=== PATIENT | male | born 1965 | race Caucasian/White ===

== ENCOUNTER 2017-05-23 21:30 | Inpatient (IN) ==
[2017-05-23] MEDS ORDERED: Naloxone 0.4 MG/ML INJ IVP PRN (23:42)
[2017-05-23] MEDS ORDERED: Ketorolac 30 MG/ML VIAL IVP PRN (23:42)
[2017-05-23] MEDS ORDERED: *HR* LORazepam 2 MG/ML VIAL IVP PRN ×3 (23:48)
--- NOTE | 2017-05-23 23:53 | Internal Med History&Physical ---
Date of Encounter: 05/23/17 Time of Encounter: 23:00 Assessment and Plan (1) Alcoholism Current visit: Yes Status: Acute Patient denies heavy alcohol use. Obviously he drink today. Will place patient on CIWA protocol. Follow-up alcohol level in AM (2) DVT prophylaxis Current visit: Yes Status: Acute EPCD on the left leg now. Hold anticoagulation for possible surgery tomorrow. May start anticoagulation after surgery (3) Fracture of distal end of tibia with fibula Current visit: No Status: Acute Patient has mechanical fall with right tibia and fibula fracture. - Continue pain control - Nothing by mouth from midnight. IV fluid - Orthopedic consult for surgery Qualifiers: Encounter type: initial encounter Fracture type: closed Laterality: right Qualified Code(s): S82.831A - Other fracture of upper and lower end of right fibula, initial encounter for closed fracture; S82.301A - Unspecified fracture of lower end of right tibia, initial encounter for closed fracture; S82.301A - Unspecified fracture of lower end of right tibia, initial encounter for closed fracture Internal Medicine - H&P: HPI Chief complaint: Right leg pain Admitted From: Home Plans for Post Hospital Care: Transfer In Rehab Fac History of present illness: Mr. Manzano is a 51 year old male with history of hypertension on no medication now, depression, presented to [place] emergency room for fall and left leg pain. Patient said he fell in kitchen when he was preparing food for family. Patient denies loss of consciousness. Patient denies head or neck injury. Patient denies and other parts of pain except right lower leg. In [place] emergency room, he was found alcohol level high to 300s. X-ray shows right tibia fibula fracture. Patient was transferred to our hospital for further management. Past Med Surg Social Fam HX - Past Medical History Medical history: arthritis, hypertension Psychiatric history: anxiety, depression - Social History Smoking Status: Never smoker Smokeless Tobacco Status: No Alcohol use: heavy Drug use: marijuana - Family History Mother History Unknown: Yes Internal Medicine - H&P: Meds No Known Home Drugs 05/23/17 [History] 3 Allergy/AdvReac Type Severity Reaction Status Date / Time Penicillins Allergy unknown Verified 05/23/17 20:45 All Systems PM: A 10-system review of systems was performed and is negative for pertinent findings except as documented above in the HPI. - Constitutional Vitals: Temp Pulse Resp BP Pulse Ox 97.7 F 91 16 130/84 93 05/23/17 23:01 05/23/17 23:01 05/23/17 23:01 05/23/17 23:01 05/23/17 23:01 General appearance: Present: mild distress, A&O X 3, answers questions appropriately - Head Head exam: Present: atraumatic, normocephalic - Eye Eye exam: Present: PERRL, conjuntiva pink, sclera anicteric Pupils: Present: PERRL - Neck Neck exam general surgery: Present: supple, trachea midline. Absent: lymphadenopathy - Respiratory Respiratory exam: Present: CTAB. Absent: accessory muscle use, rales, rhonchi, wheezes - Cardiovascular Cardiovascular exam: Present: RRR, +S1, +S2. Absent: diastolic murmur, gallop, rubs, systolic murmur - GI/Abdominal GI/Abdominal exam: Present: normal bowel sounds, soft, no peritoneal signs. Absent: distended, tenderness - Extremities Exam Extremities exam: Present: warm, radial pulses palpable and symmetrical. Absent : calf tenderness, cyanotic, pedal edema Additional comments: Left leg movement is limited due to pain - Neurological Exam Neurological exam: Present: CN II-XII intact, oriented X3, no focal deficits. Absent: pronater drift, facial droop, speech deficit - Skin Skin exam: Present: dry, intact
[2017-05-24 06:05] LABS: Basophils # 0.1 K/mcL (0.0-0.2); Basophils % 0.5 %; Eosinophils # 0.1 K/mcL (0.0-0.6); Eosinophils % 0.5 %; Hematocrit 44.2 % (37.5-50.1); Hemoglobin 15.1 g/dL (12.9-16.9); Immature Granulocytes % 0.3 % (0-4); Lymphocytes # 2.4 K/mcL (0.6-4.6); Lymphocytes % 23.5 %; Mean Corpuscular HGB Conc 34.2 g/dL (31.6-35.5); Mean Corpuscular Hemoglobin 29.1 pg (28.0-33.3); Mean Corpuscular Volume 85.2 fL (83.0-100.0); Mean Platelet Volume 9.8 fL (9.4-12.4); Monocytes # 0.7 K/mcL (0.0-1.3); Monocytes % 6.5 %; Neutrophils # 7.2 K/mcL (1.6-8.9); Platelet Count 206 K/mcL (140-400); Red Blood Count 5.19 M/mcL (4.19-5.50); Red Cell Distribution Width 12.8 % (11.5-14.5); Segmented Neutrophils % 68.7 %
[2017-05-24 06:09] LABS: Ethanol 184 mg/dL (0-10)
[2017-05-24 06:10] LABS: INR 1.1; Prothrombin Time 11.5 Seconds (9.4-12.1)
[2017-05-24 06:30] LABS: BUN/Creatinine Ratio 16 (6-26); Blood Urea Nitrogen 10 mg/dL (6-20); Calcium 8.4 mg/dL (8.6-10.3); Carbon Dioxide 23 mEq/L (23-29); Chloride 109 mEq/L (98-107); Glucose 109 mg/dL (70-105); Osmolality,Calculated 294 (280-300); Potassium 3.8 mEq/L (3.5-5.1); Sodium 142 mEq/L (136-145); eGFR For African Americans > 60 (> 60); eGFR For Non-African Americans > 60 (> 60)
--- NOTE | 2017-05-24 07:18 | Anesthesia Evaluation PreOp ---
Date of Encounter: 05/24/17 Time of Encounter: 08:00 - Past History Planned Operation: Rt Tib Fib ORIF, IM Nailing Cardiac History: Hyperlipidemia (no meds) Pulmonary History: Denies Any Significant HX CHAIR History: Denies Any Significant HX Other Medical History: Other (Depression) Anesthesia History: No Prior Anesthetic Complications Alcohol Use: heavy Drug use: marijuana Medications and Allergies No Known Home Drugs 05/23/17 [History] 3 Allergy/AdvReac Type Severity Reaction Status Date / Time Penicillins Allergy unknown Verified 05/23/17 20:45 - Meds/Allergy Pre-op Review Medications Reviewed: Yes Allergies Reviewed: Yes Beta Blockers on Current Med List: No Anesthesia Results - Labs 05/24/17 05:16 05/24/17 05:16 Anesthesia Exam Vital Signs/O2 Sat/Glucose, Most Current Temp Pulse Resp BP Pulse Ox 05/24/17 03:50 98.4 F 86 16 119/73 92 Height: 5'6 Weight: 214 lbs NPO (# of Hours): MN Pain Scale: 0 - HEENT Pupil (Motor): Pupils equal, EOMI Mallampati: III Teeth: Normal Oral Opening: Less than or equal to 3 - CHAIR LOC: Oriented CHAIR Motor: Normal RUE, Normal LUE, Normal RLE, Normal LLE, Normal Face CHAIR Sensory: Normal: RUE, LUE, RLE, LLE, Face - Cardiac Rhythm: Regular Murmur: None JVD: No Carotid Bruit: No - Pulmonary Breath Sounds: bilateral Clear Respiratory Effort: Symmetrical Anesthesia Assess/Plan ASA Score: 2 Modified [place] Scale for Level of Consciousness: Cooperative, oriented, and tranquil Anesthetic Plan: General, Regional Monitoring Plan: Standard Monitors Recovery Plan: PACU (Discussed GA, RA, possible MAC, risks and benefits, agrees to proceed)
--- NOTE | 2017-05-24 08:11 | Orthopedic Consult Note ---
Date of Encounter: 05/24/17 Time of Encounter: 08:09 Assessment and Plan (1) Fracture of tibial shaft, right, closed Current Visit: Yes Status: Acute Discussed with the patient was requested and stabilization. Patient given the option of doing surgery herer at [place] or transfer to [place]. Patient would like to have the surgery done today. He is scheduled for a right leg intramedullary nailing of the tibia. The risks, benefits alternatives discussed. Informed consent was obtained. Qualifiers: Encounter type: initial encounter Fracture morphology: spiral Fracture alignment: displaced Qualified Code(s): S82.241A - Displaced spiral fracture of shaft of right tibia, initial encounter for closed fracture (2) Closed fracture of right distal fibula Current Visit: Yes Status: Acute We discussed that since this is further down in the ankle, most likely require an open reduction internal fixation. The additional risks, benefits alternatives were discussed the patient. Qualifiers: Encounter type: initial encounter Fracture morphology: unspecified fracture morphology Qualified Code(s): S82.831A - Other fracture of upper and lower end of right fibula, initial encounter for closed fracture (3) Alcoholism Current Visit: Yes Status: Acute Will have to monitor him for signs of withdrawal and use DT prophylaxis History of Present Illness Chief complaint: Right leg pain HPI: Mr. Manzano is a 51 year old male who is visiting his mom in [place]. The patient was inebriated, celebrating [employer]. He was indicated to cooking meal when he fell over sustaining a right leg tibia and fibula fractures. Patient denies loss of consciousness prior to the fall and did not black out after the injury. The patient lives in [place]. 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 The patient admits to history of alcohol abuse. 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 Past Med Surg Social Fam HX - Past Medical History Medical history: arthritis, hypertension Psychiatric history: anxiety, depression - Social History Smoking Status: Never smoker Smokeless Tobacco Status: No Alcohol use: heavy Drug use: marijuana - Family History Mother History Unknown: Yes Medications and Allergies No Known Home Drugs 05/23/17 [History] 3 Allergy/AdvReac Type Severity Reaction Status Date / Time Penicillins Allergy unknown Verified 05/23/17 20:45 All Systems Reviewed: The remainder of the systems were reviewed and are negative Physical Exam - Constitutional Vitals: Temp Pulse Resp BP Pulse Ox 98.4 F 91 12 135/84 95 05/24/17 07:38 05/24/17 07:38 05/24/17 07:38 05/24/17 07:38 05/24/17 07:38 General appearance IM: mild distress, A&O X 3, pleasant, answers questions appropriately Exam: Head: Normocephalic atraumatic Right lower extremity: Patient has on a splint to the right leg. He is able to bend his knee and hip. He is able to move his toes without pain. Sensation intact. Normal capillary refill. Left lower extremity: No bruising, deformity, normal range of motion of joints , no tenderness along bones Results - Labs Result Diagrams: 05/24/17 05:16 05/24/17 05:16 Labs: Abnormal lab results Chloride 109 mEq/L (98-107) H 05/24/17 05:16 Creatinine 0.64 mg/dL (0.70-1.30) L 05/24/17 05:16 Glucose 109 mg/dL (70-105) H 05/24/17 05:16 POC Glucose 97 (58-89) H 05/24/17 05:20 Calcium 8.4 mg/dL (8.6-10.3) L 05/24/17 05:16 Ethyl Alcohol 184 mg/dL (0-10) H 05/24/17 05:16 H & H 05/24/17 Range/Units 05:16 Hgb 15.1 (12.9-16.9) g/dL Hct 44.2 (37.5-50.1) % All other labs normal. - Diagnostic results Ankle/Foot x-ray: image reviewed (Right leg x-ray showing a nondisplaced tibial shaft fracture, also a distal fibular fracture) Consult Discharge Plan - Plan Referrals: NONE,PCP [Primary Care Provider] -
[2017-05-24] MEDS: 0.9 % Sodium Chloride 1,000 ML IVC SCH ×3 (08:21→13:01)
[2017-05-24] MEDS ORDERED: Acetaminophen IV 1,000 MG/100 ML INFUS..BTL IVPB ONE ×2 (08:32→09:40)
[2017-05-24] MEDS ORDERED: Famotidine 20 MG/2 ML VIAL IVP ONE ×2 (08:32→09:40)
[2017-05-24] MEDS ORDERED: *HR* Midazolam HCl 5 MG/5 ML VIAL IVP ONE (08:36)
[2017-05-24] MEDS ORDERED: *HR* Propofol 200 MG/20 ML VIAL IVP ONE (08:36)
[2017-05-24] MEDS ORDERED: *HR* FentaNYL (PF) 100 MCG/2 ML VIAL ONE ×2 (08:36→09:14)
[2017-05-24] MEDS ORDERED: Ondansetron 4 MG/2 ML VIAL ONE (08:37)
[2017-05-24] MEDS ORDERED: Dexamethasone 4 MG/ML VIAL ONE (08:37)
[2017-05-24] MEDS ORDERED: Lidocaine -MPF 2% 2 ML VIAL ONE (08:37)
[2017-05-24] MEDS ORDERED: *HR* Morphine Sulfate/PF 10 MG/10 ML AMPUL ONE (08:47)
[2017-05-24] MEDS ORDERED: Acetaminophen IV 1,000 MG/100 ML INFUS..BTL ONE (08:47)
[2017-05-24] MEDS ORDERED: Clindamycin 900 MG/50 ML 900 MG/50 ML IV.SOLN IVPB ONE (08:50)
[2017-05-24] MEDS ORDERED: *HR* PHENYLEPHRINE 1,000 MCG/10 ML SYRINGE IVP ONE ×2 (08:57→09:22)
[2017-05-24] MEDS: Clindamycin 900 MG/50 ML 900 MG/50 ML IV.SOLN IVPB SCH ×3 (09:00→17:40)
[2017-05-24] MEDS ORDERED: *HR* OxyCODONE/APAP 5/325 TABLET PO PRN (09:40)
[2017-05-24] MEDS ORDERED: Ketorolac 30 MG/ML VIAL IVP PRN (09:40)
[2017-05-24] MEDS ORDERED: Naloxone 0.4 MG/ML INJ IVP PRN ×2 (09:40)
[2017-05-24] MEDS ORDERED: *HR* LORazepam 2 MG/ML VIAL IVP PRN ×3 (09:40)
[2017-05-24] MEDS ORDERED: Ibuprofen 400 MG TABLET PO PRN (09:40)
[2017-05-24] MEDS ORDERED: Ondansetron 4 MG/2 ML VIAL IVP PRN (09:40)
[2017-05-24] MEDS ORDERED: traMADol 50 MG TABLET PO PRN (09:40)
[2017-05-24] MEDS ORDERED: *HR* Phenylephrine 10 MG/ML VIAL ONE (09:45)
--- NOTE | 2017-05-24 10:41 | Internal Med Progress Note ---
Addendum entered and electronically signed by Adrian Vasques DO 05/24/17 16: 03: Addendum to A/P Alcohol withdrawal symptoms The patient is becoming more tachycardic and hypertensive This is likely related to alcohol withdrawal We will prophylactically start Librium, initiate a taper Original Note: <Adrian Vasques - Last Filed: 05/24/17 14:35> Date of Encounter: 05/24/17 Time of Encounter: 14:35 - Assessment and plan (1) Fracture of distal end of tibia with fibula Current Visit: Yes Status: Acute Assessment and plan: Fracture of the Right Tibia/fibula, s/p surgical correction The patient suffered mechanical fall while intoxicated We will continue pain medication PT/OT Consult in the morning Ortho recommendations appreciated Qualifiers: Encounter type: initial encounter Fracture type: closed Laterality: right Qualified Code(s): S82.831A - Other fracture of upper and lower end of right fibula, initial encounter for closed fracture; S82.301A - Unspecified fracture of lower end of right tibia, initial encounter for closed fracture; S82.301A - Unspecified fracture of lower end of right tibia, initial encounter for closed fracture (2) Alcoholism Current Visit: Yes Status: Acute Assessment and plan: Alcohol abuse/dependence, EtOH on arrival 184 The patient is on CIWA protocol, recent score 1 Unlikely to need benzodiazepines for this hospitalization We will replace vitamins, rehabilitation services counselor on alcohol cessation (3) Manic depression Current Visit: Yes Status: Acute Assessment and plan: Self-described Manic Depression, 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 The patient has been dealing with significant depression lately He does admit to some impulsivity He has apparently been prescribed lamotrigine as a mood stabilizer in the past, but his new insurance won't cover it He does feel that the medication was not very helpful Would like to discuss options for management of depression and alcoholism, which he feels are related Will consult social work Qualifiers: Active/Remission status: in partial remission Most recent bipolar episode type: depressed Qualified Code(s): F31.75 - Bipolar disorder, in partial remission, most recent episode depressed (4) DVT prophylaxis Current Visit: Yes Status: Acute Assessment and plan: SQ lovenox (5) Hypertension Current Visit: Yes Status: Acute Assessment and plan: Hypertension, poorly controlled The patient says he's been treated with Lisinopril previously He stopped taking his medication when insurance was changed He has been hypertensive over his stay here Pain and alcohol withdrawal may play a role in this, however it's unclear I will start him on 10mg Lisinopril and monitor Qualifiers: Hypertension type: essential hypertension Qualified Code(s): I10 - Essential (primary) hypertension - Subjective Interval history: The patient is resting comfortably in bed status post surgical correction of tibia fibula fracture. He says that this occurred due to a fall. He lost his balance while drinking [employer]old[employer], and he fell he broke his leg. He says that he has had an issue with drinking in the past, and has made multiple efforts to stop. He is apparently tried to take naltrexone at the prescription of his primary care, and he says that it is effective in stopping while he takes it, however he finds that he often ends up stopping that. He also says that he has been feeling extremely depressed. He describes as "manic depression ", but hints that he may have been diagnosed with bipolar disorder at some time. He believes that his alcohol use is in part method of self-medication. When asked, he said he does have a good support system at home, and he has people that he can talk to. He additionally denies any suicidal or homicidal ideations. He denies ever experiencing any symptoms of alcohol withdrawal including DTs, shakes, seizures. - Constitutional Vitals: Temp Pulse Resp BP Pulse Ox 98.4 F 91 12 135/84 95 05/24/17 07:38 05/24/17 07:38 05/24/17 07:38 05/24/17 07:38 05/24/17 07:38 General appearance: Present: mild distress, A&O X 3, answers questions appropriately Exam: Gen: Vitals noted. No acute distress. AAOx3 HEENT: PERRL/EOMI, oropharynx clear, Normocephalic, atraumatic Neck: Supple. No adenopathy. Cardiac: RRR, no murmur, +S1/S2 Pulmonary: CTA bilaterally, no wheezes, rales or rhonchi, equal chest expansion Abdomen: soft, nontender, BS noted, no guarding Back: Nontender throughout. MSK: s/p right ORIF of tibia/fibula fx, surgical dressing intact Extremities: Left leg: no edema, nontender calf, no cyanosis or clubbing, Right leg cannot be assessed Neuro: A&Ox3, moves all extremities, no focal deficits Psych: The patient admits to depression and axiety which have been bothering him a lot recently. Internal Medicine: Result - Labs CBC & Chem 7: 05/24/17 05:16 05/24/17 05:16 Labs: Short CBC 05/24/17 Range/Units 05:16 WBC 10.4 (4.3-11.1) K/mcL Hgb 15.1 (12.9-16.9) g/dL Hct 44.2 (37.5-50.1) % Plt Count 206 (140-400) K/mcL Neutrophils # 7.2 (1.6-8.9) K/mcL BMP 05/24/17 05:16 Sodium 142 Potassium 3.8 Chloride 109 H Carbon Dioxide 23 BUN 10 Creatinine 0.64 L Glucose 109 H Calcium 8.4 L - ABG Interpretation ABG results: PT/INR, D-dimer PT 11.5 Seconds (9.4-12.1) 05/24/17 05:16 Consult Discharge Plan - Plan Referrals: NONE,PCP [Primary Care Provider] - <Ginger Villalpando - Last Filed: 05/24/17 18:27> Date of Encounter: 05/24/17 - Constitutional Vitals: Temp Pulse Resp BP Pulse Ox 97.8 F 81 15 155/90 96 05/24/17 16:05 05/24/17 16:05 05/24/17 16:05 05/24/17 16:05 05/24/17 16:05 Internal Medicine: Result - Labs CBC & Chem 7: 05/24/17 05:16 05/24/17 05:16 Labs: Short CBC 05/24/17 Range/Units 05:16 WBC 10.4 (4.3-11.1) K/mcL Hgb 15.1 (12.9-16.9) g/dL Hct 44.2 (37.5-50.1) % Plt Count 206 (140-400) K/mcL Neutrophils # 7.2 (1.6-8.9) K/mcL BMP 05/24/17 05:16 Sodium 142 Potassium 3.8 Chloride 109 H Carbon Dioxide 23 BUN 10 Creatinine 0.64 L Glucose 109 H Calcium 8.4 L - ABG Interpretation ABG results: PT/INR, D-dimer PT 11.5 Seconds (9.4-12.1) 05/24/17 05:16 - Impressions Impressions Ankle X-Ray 05/24/17 00:00 IMPRESSION: Intraprocedural fluoroscopic spot images as above. See separate procedure report for more information. D/ / 05/24/2017 13:22:39 Lin Freeman MD / Alexa Bello Interpreting Provider: Lin Freeman MD Fluoroscopy 05/24/17 00:00 IMPRESSION: Intraprocedural fluoroscopic spot images as above. See separate procedure report for more information. D/ / 05/24/2017 13:21:14 Delfino Lou MD / Alexa Bello Interpreting Provider: Delfino Lou MD Fluoroscopy 05/24/17 00:00 IMPRESSION: Intraprocedural fluoroscopic spot images as above. See separate procedure report for more information. D/ / 05/24/2017 13:22:39 Lin Freeman MD / Alexa Bello Interpreting Provider: Lin Freeman MD Tibia/Fibula X-Ray 05/24/17 00:00 IMPRESSION: Intraprocedural fluoroscopic spot images as above. See separate procedure report for more information. D/ / 05/24/2017 13:21:14 Delfino Lou MD / Alexa Bello Interpreting Provider: Delfino Lou MD - Attending Attestation I examined this patient and my medical decision-making was reviewed with the Resident Physician Dr. Vasques. I agree with the documented findings, disposition and treatment plan as described except to the extent set forth below. Mr. Manzano is a 51 year old male with history of hypertension on no medication now, depression, presented to [place] emergency room for fall and left leg pain. Pt happened to have Rt tibia fibula fracture. He does drink alcohol heavily on regular basis. Had last alcohol y/d Gen: A, A, O x3 Chest: Diminished BS Heart: S1S2 + mild tachycardia Ext: Dressing placed over Rt leg a/p 1. Acute Rt tibia fibula fracture s/p surgical correction PT / OT eval 2. Chronic alcohol dependence 3. Alcohol withdrawal symptoms On CIWA Librium 50mg Q6hr Pt would like to quit drinking counseled
[2017-05-24] MEDS ORDERED: Ketorolac 30 MG/ML VIAL ONE (11:18)
--- NOTE | 2017-05-24 12:45 | Anesthesia Procedures ---
Date of Encounter: 05/24/17 Time of Encounter: 07:15 Procedures: Anesthesia - Epidural/Spinal Patient ID/Chart reviewed: Yes Patient examined: Yes Supplemental Oxygen: None/Room Air Sedation: Versed (mg): 5 Site Prep: Aseptic Technique Patient position: upright Local Anesthetic: Lidocaine 1% Interspace Used: L4-L5 Blood: No CSF: Yes Paresthesia: No Spinal Needle Gauge: 24 Spinal Dose: 1 mg marcaine, 0.3 mg duramorph
--- NOTE | 2017-05-24 12:46 | Anesthesia Evaluation Post Op ---
Date of Encounter: 05/24/17 Time of Encounter: 12:35 - Vital Signs Vital Signs: Vital Signs/O2 Sat/Glucose, Most Current Temp Pulse Resp BP Pulse Ox 05/24/17 12:35 98.6 F 89 18 153/95 94 05/24/17 12:25 91 18 152/89 94 05/24/17 12:15 91 18 146/97 93 05/24/17 12:05 98.6 F 96 18 130/91 95 - Lungs Lungs: Clear Ascult./Percussion - Airway Airway: Non-obstructed - Cardiovascular Regular Rate - Mental Status Mental Status: Alert & Oriented, Answers Appropriately - Pain Pain Scale: 0 - Nausea Vomiting Nausea Vomiting: Not Present - Hydration Hydration: Ice chips - Discharge PostOp Status: Transfer Patient to floor
[2017-05-24] MEDS: *HR* OxyCODONE Immed Rel 5 MG TABLET PO PRN ×3 (15:09→23:06)
[2017-05-24] MEDS: Vitamin B Complex/Vit C/Vit E 1 EACH TABLET PO SCH (17:25)
[2017-05-24] MEDS: Thiamine (B-1) 100 MG TABLET PO SCH (17:26)
[2017-05-24] MEDS: Folic Acid 1 MG TABLET PO SCH (17:26)
--- NOTE | 2017-05-24 17:34 | Operative Note ---
Date of procedure: 05/24/17 Pre-op diagnosis: Right leg close tibial shaft fracture, right ankle closed distal fibular fx Post-op diagnosis: same Procedure: Right leg intramedullary nailing of tibial shaft fracture Right ankle open reduction internal fixation of distal fibula Implants: The Aurora T2 nail Aurora foot and ankle plating system Anesthesia: tony ELIZONDO Surgeon: Mirza Starks Was there an reference assistant present: No Estimated blood loss (cc): 10 Tourniquet Time (Minutes): 123 Specimen: 0 Condition: stable Disposition: PACU Procedure in Detail: The patient received IV antibiotics in the holding area. He was brought to the operating room, sign in was performed. The patient was transferred to the OR table in supine position. He received a spinal, then underwent general anesthesia. A tourniquet was placed on the right thigh proximally, close the groin. The right lower extremity was then prepped and draped in usual sterile fashion. A timeout was performed. The right lower extremity was then elevated, exsanguinated with an Esmarch, and the tourniquet was raised to a pressure of 300 mm Hg. A medium-sized reducing triangles and placed beneath the leg and the knee. I palpated out and marked off the patella as well as the tibial tubercle. The patella tendon was traced out. A 4 cm longitudinal incision was made over the patella tendon. The subcutaneous tissue was bluntly spread. The paratenon on the medial side was sharply split, followed by incision on the middle of the patella tendon. The curved awl was then introduced. Fluoroscopy was used to position the awl making sure all it was between the tibial spines on the AP view and the top of the rollover on the lateral view. The awl was moved over to the medial side of the tendon. The awl was used to open up the proximal tibia. A ball-tipped guidewire with a small curved and was not introduced, and driven down the shaft. The fracture was reduced with traction and manual manipulation since wounds open. Awl was advanced across the fracture distally down to the distal tibia. We checked fluoroscopy make sure the wire was well centered distally. The length of the wire was measured, and sent to use a 345 mm long nail. We start off with the smallest reamer, which was an 9 mm reamer. Next moved to 10 mm, continuing up to 11 then 12.. This gave mild chatter. Next went up to a 12.5 mm reamer, which gave moderate chatter. Reaming was done while holding the reduction well. A 12 mm x 345 mm long nail was opened. The nail was then introduced over the guidewire, tapping it passed the isthmus, maintaining a reduction and tapping across the fracture site. The was tapped down to the distal tibia, just above the old physeal scar of the plafond. Checking of the knee, it was seen that we reamed the reamer without too anteriorly. Even though the nail was deeper under the tibial plateau it was very anterior. The nail has been Down just past the old physeal scar. It was decided to lock the nail distally first. A medial screw will be placed through the most distal transverse hole in the nail. The technique of perfect circles utilized, a 1 cm incision was made and bluntly spreading down to for the posterior tibialis artery. The screw was placed in standard technique, utilizing perfect circles for drilling. This was followed by an anterior to posterior screw, also positioning with perfect circles on x-ray. I bluntly spread protective very anterior tibialis artery when drilling. Next we used the proximal jig to place a static screw, this was placed from lateral to medial. The triple trochars were used in standard technique, making a 2 cm longitudinal incision, spreading down to the bone, advanced the triple trochars, drilling measuring and placing the appropriate screw. Multiple fluoroscopy shots were taken making sure all nails probably placed in the screws were appropriate length. Once satisfactory the jig was removed, and final fluoroscopy shots were taken and saved. Next an 8 mm longitudinal incisions made over the distal fibula ending at the tip of the distal fibula. The subcutaneous tissue bluntly spread and make sure the superficial peroneal nerve was not in the way. Then sharply split along the periosteum, elevating off the fibula. The fibula had a flat surface laterally and distal side, there is a curvature with flat posteriorly proximal to the fracture site. The fracture was actually oblique Butler going from proximal lateral to distal medial and secondary fracture line on the proximal posterior surface was completely nondisplaced. The fracture was mobilized, and reduced with lion-jaw clamp. A temporary threaded K wires placed on the fracture. Next using the [employer] Digital ankle plating system, a 5 hole distal fibular plate was applied. This applied proximal and distal to the fracture lines with bicortical screws were not tightened down all the way. This was followed by a lag screw placed through the plate in standard technique. The remaining screws and filled in standard technique placed a combination of bicortical and locking screws. The wounds were copiously irrigated with normal saline. The edge of the patella tendon was closed with 0 Vicryl [id number], followed by closure of the peritenon with 2-0 Vicryl [id number] sutures. The tourniquet was deflated, hemostasis obtained with the Bovie electrocautery, and I irrigated the wounds one last time. The knee incision was closed with 2-0 Vicryl subcutaneous layer. The proximal femoral plate was closed over with 2-0 Vicryl figure of 8 sutures. The tourniquet was then deflated. The skin incisions were then closed with 4- 0 nylon mattress and simple sutures. Sterile dressings were applied followed by posterior splint/with side slabs. The patient was extubated and taken to recovery in supination. The patient will follow-up on postoperative week #1 for dressing changes, wound check, placed into a cam boot.
[2017-05-25] MEDS ORDERED: Clindamycin 900 MG/50 ML 900 MG/50 ML IV.SOLN IVPB SCH
[2017-05-25] MEDS: *HR* OxyCODONE Immed Rel 5 MG TABLET PO PRN ×3 (05:01→15:21)
[2017-05-25] MEDS ORDERED: *HR* Enoxaparin 40 MG/0.4 ML SYRINGE SQ SCH (06:00)
[2017-05-25 06:38] LABS: Basophils % 0.3 %; Eosinophils % 0.1 %; Hematocrit 37.9 % (37.5-50.1); Immature Granulocytes % 0.4 % (0-4); Lymphocytes # 1.4 K/mcL (0.6-4.6); Lymphocytes % 11.5 %; Mean Corpuscular Hemoglobin 29.4 pg (28.0-33.3); Mean Corpuscular Volume 86.3 fL (83.0-100.0); Mean Platelet Volume 10.3 fL (9.4-12.4); Monocytes # 1.2 K/mcL (0.0-1.3); Monocytes % 10.1 %; Neutrophils # 9.3 K/mcL (1.6-8.9); Platelet Count 178 K/mcL (140-400); Red Blood Count 4.39 M/mcL (4.19-5.50); Red Cell Distribution Width 12.5 % (11.5-14.5); Segmented Neutrophils % 77.6 %
[2017-05-25 06:40] LABS: Hemoglobin 12.9 g/dL (12.9-16.9)
[2017-05-25 06:47] LABS: Alanine Aminotransferase 16 Units/L (7-52); Albumin 3.7 g/dL (3.5-5.7); Albumin/Globulin Ratio 1.9 (1.1-2.2); Alkaline Phosphatase 50 Units/L (34-104); Aspartate Amino Transferase 18 Units/L (13-39); BUN/Creatinine Ratio 22 (6-26); Bilirubin,Total 0.8 mg/dL (0.3-1.0); Blood Urea Nitrogen 17 mg/dL (6-20); Calcium 8.6 mg/dL (8.6-10.3); Carbon Dioxide 24 mEq/L (23-29); Chloride 103 mEq/L (98-107); Chol/HDL Ratio 3.2 (0-4.9); Cholesterol 165 mg/dL (< 200); Globulin 1.9 g/dL (2.4-3.5); Glucose 126 mg/dL (70-105); HDL Cholesterol 51 mg/dL (40-59); LDL Cholesterol,Calculated 98 mg/dL (0-99); Osmolality,Calculated 285 (280-300); Sodium 136 mEq/L (136-145); Total Protein 5.6 g/dL (6.4-8.9); Triglycerides 81 mg/dL (< 150); eGFR For African Americans > 60 (> 60); eGFR For Non-African Americans > 60 (> 60)
[2017-05-25] MEDS: Thiamine (B-1) 100 MG TABLET PO SCH (08:28)
[2017-05-25] MEDS: Folic Acid 1 MG TABLET PO SCH (08:28)
[2017-05-25] MEDS: Vitamin B Complex/Vit C/Vit E 1 EACH TABLET PO SCH (08:28)
--- NOTE | 2017-05-25 13:23 | Internal Med Progress Note ---
Date of Encounter: 05/25/17 Time of Encounter: 09:00 - Assessment and plan (1) Fracture of distal end of tibia with fibula Current Visit: Yes Status: Acute Assessment and plan: -Fracture of the Right Tibia/fibula, s/p surgical correction -The patient suffered mechanical fall while intoxicated -Yesterday, 2 procedures were performed: Right leg intramedullary nailing of tibial shaft fracture, and right ankle open reduction internal fixation of distal fibula -Patient tolerated surgery well -PT/OT on board -Ortho recommendations appreciated -Roxicodone 10 mg by mouth every 4 hours -Ultram 50 mg by mouth every 4 hours when necessary Qualifiers: Encounter type: initial encounter Fracture type: closed Laterality: right Qualified Code(s): S82.831A - Other fracture of upper and lower end of right fibula, initial encounter for closed fracture; S82.301A - Unspecified fracture of lower end of right tibia, initial encounter for closed fracture; S82.301A - Unspecified fracture of lower end of right tibia, initial encounter for closed fracture (2) Alcoholism Current Visit: Yes Status: Acute Assessment and plan: -Alcohol abuse/dependence, EtOH on arrival 184 -The patient is on CIWA protocol -Unlikely to need benzodiazepines for this hospitalization -Librium 50 mg by mouth every 6 hours -Ativan when necessary -Folic acid 1 mg by mouth daily -Thiamine 100 mg by mouth daily (3) Manic depression Current Visit: Yes Status: Acute Assessment and plan: -Self-described Manic Depression, 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 -The patient has been dealing with significant depression lately -He does admit to some impulsivity -He has apparently been prescribed lamotrigine as a mood stabilizer in the past , but his new insurance -won't cover it -He does feel that the medication was not very helpful -Consult social work Qualifiers: Active/Remission status: in partial remission Most recent bipolar episode type: depressed Qualified Code(s): F31.75 - Bipolar disorder, in partial remission, most recent episode depressed (4) Hypertension Current Visit: Yes Status: Acute Assessment and plan: -Patient has a known history of hypertension. -Had previously been treated with lisinopril; stop taking this medication when his insurance changed. -Was initially hypertensive during his stay in the hospital -Was given 10 mg of lisinopril yesterday -Blood pressure is currently well controlled. Qualifiers: Hypertension type: essential hypertension Qualified Code(s): I10 - Essential (primary) hypertension (5) DVT prophylaxis Current Visit: Yes Status: Acute Assessment and plan: -SQ lovenox - Subjective Interval history: 51-year-old male. Presented to [facility] for fall and left leg pain. Fell in the kitchen when he was preparing food. No loss of consciousness, no head or neck injury. In [place], patient was found to high an alcohol level in the 300s. X-ray demonstrated right tibia and fibula fracture. Was transferred to [facility] for further evaluation. Patient was placed on CIWA protocol. Orthopedics was consulted. Patient has known history of alcohol abuse. 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 On 05/24/17, patient began to experience alcohol withdrawal symptoms. Became tachycardic and hypertensive. Librium was initiated; 50 mg by mouth every 6 hours. Yesterday, 2 procedures were performed: Right leg intramedullary nailing of tibial shaft fracture, and right ankle open reduction internal fixation of distal fibula. Patient was seen and examined at bedside this morning. States that he still in some pain, but feels like he is recovering well. He has been seen by physical therapy; history is as much as he can. Patient was seen by PT today; recommend nonweightbearing. Patient will need crutches, which she has used in the past with his hip replacements. Patient had no loss of balance with the use of walker or crutches. Patient seen and examined at bedside this morning. No new complaints today. Pain well controlled. Seems to be tolerating PT well. - Constitutional Vitals: Temp Pulse Resp BP Pulse Ox 97.7 F 76 18 126/76 95 05/25/17 10:51 05/25/17 10:51 05/25/17 10:51 05/25/17 10:51 05/25/17 10:51 General appearance: Present: mild distress, A&O X 3, answers questions appropriately - Head Head exam: Present: atraumatic, normocephalic - Eye Eye exam: Present: PERRL, conjuntiva pink, sclera anicteric Pupils: Present: PERRL - Neck Neck exam general surgery: Present: supple, trachea midline. Absent: lymphadenopathy - Respiratory Respiratory exam: Present: CTAB. Absent: accessory muscle use, rales, rhonchi, wheezes - Cardiovascular Cardiovascular exam: Present: RRR, +S1, +S2. Absent: diastolic murmur, gallop, rubs, systolic murmur - GI/Abdominal GI/Abdominal exam: Present: normal bowel sounds, soft, no peritoneal signs. Absent: distended, tenderness - Extremities Exam Additional comments: R leg currently wrapped - Neurological Exam Neurological exam: Present: CN II-XII intact, oriented X3, no focal deficits. Absent: pronater drift, facial droop, speech deficit - Skin Skin exam: Present: dry, intact Internal Medicine: Result - Labs CBC & Chem 7: 05/25/17 04:30 05/25/17 04:30 Labs: Short CBC 05/25/17 Range/Units 04:30 WBC 11.9 H (4.3-11.1) K/mcL Hgb 12.9 D (12.9-16.9) g/dL Hct 37.9 (37.5-50.1) % Plt Count 178 (140-400) K/mcL Neutrophils # 9.3 H (1.6-8.9) K/mcL BMP 05/25/17 04:30 Sodium 136 Potassium 4.0 Chloride 103 Carbon Dioxide 24 BUN 17 Creatinine 0.76 Glucose 126 H Calcium 8.6 Liver Function 05/25/17 Range/Units 04:30 Total Bilirubin 0.8 (0.3-1.0) mg/dL AST 18 (13-39) Units/L ALT 16 (7-52) Units/L Alkaline Phosphatase 50 (34-104) Units/L Albumin 3.7 (3.5-5.7) g/dL - ABG Interpretation ABG results: PT/INR, D-dimer PT 11.5 Seconds (9.4-12.1) 05/24/17 05:16 - Impressions Impressions Ankle X-Ray 05/24/17 00:00 IMPRESSION: Intraprocedural fluoroscopic spot images as above. See separate procedure report for more information. D/ / 05/24/2017 13:22:39 Lin Freeman MD / Alexa Bello Interpreting Provider: Lin Freeman MD Fluoroscopy 05/24/17 00:00 IMPRESSION: Intraprocedural fluoroscopic spot images as above. See separate procedure report for more information. D/ / 05/24/2017 13:21:14 Delfino Lou MD / Alexa Bello Interpreting Provider: Delfino Lou MD Fluoroscopy 05/24/17 00:00 IMPRESSION: Intraprocedural fluoroscopic spot images as above. See separate procedure report for more information. D/ / 05/24/2017 13:22:39 Lin Freeman MD / Alexa Bello Interpreting Provider: Lin Freeman MD Tibia/Fibula X-Ray 05/24/17 00:00 IMPRESSION: Intraprocedural fluoroscopic spot images as above. See separate procedure report for more information. D/ / 05/24/2017 13:21:14 Delfino Lou MD / Alexa Bello Interpreting Provider: Delfino Lou MD - VTE Documentation of Mechanical Device: Intermittent pneumatic compression device Consult Discharge Plan - Plan Referrals: NONE,PCP [Primary Care Provider] -
[2017-05-25 14:18] VITALS: BP 135/79
[2017-05-25] MEDS: 0.9 % Sodium Chloride 1,000 ML IVC SCH (15:19)
--- NOTE | 2017-05-25 15:29 | Discharge Summary ---
<Kemal Maldonado - Last Filed: 05/25/17 16:01> Orders not resulted at time of discharge: Pending orders 05/23/17 23:42 ECG 12 lead ECG [ECG] Stat Date of Encounter: 05/25/17 Time of Encounter: 15:28 - Discharge Diagnosis (1) Fracture of distal end of tibia with fibula Priority: Primary Status: Acute Qualifiers: Encounter type: initial encounter Fracture type: closed Laterality: right Qualified Code(s): S82.831A - Other fracture of upper and lower end of right fibula, initial encounter for closed fracture; S82.301A - Unspecified fracture of lower end of right tibia, initial encounter for closed fracture; S82.301A - Unspecified fracture of lower end of right tibia, initial encounter for closed fracture (2) Alcoholism Priority: Secondary Status: Acute (3) Manic depression Priority: Secondary Status: Acute Qualifiers: Active/Remission status: in partial remission Most recent bipolar episode type: depressed Qualified Code(s): F31.75 - Bipolar disorder, in partial remission, most recent episode depressed (4) Hypertension Priority: Secondary Status: Acute Qualifiers: Hypertension type: essential hypertension Qualified Code(s): I10 - Essential (primary) hypertension (5) DVT prophylaxis Priority: Secondary Status: Acute Hospital course: Mr. Manzano is a 51-year-old male who presented to [facility] for fall and left leg pain. Patient reported that h fell in the kitchen when he was preparing food. He denied having a loss of consciousness; no head or neck injury. In [facility], patient was found to high an alcohol level in the 300s. X-ray demonstrated right tibia and fibula fracture. He was transferred to [facility] for further evaluation. Orthopedics was consulted. Patient was placed on CIWA protocol. Patient has known history of alcohol abuse. He also had bilateral total hip arthroplasties in the past. 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 On 05/24/17, patient began to experience alcohol withdrawal symptoms. He became tachycardic and hypertensive. Librium was initiated at 50 mg by mouth every 6 hours. On 05/24/17, 2 procedures were performed: Right leg intramedullary nailing of tibial shaft fracture, and right ankle open reduction internal fixation of distal fibula. Patient tolerated the procedure well and experienced no complications. Patient was seen and examined at bedside this morning. States that he still in some pain, but feels like he is recovering well. He has been seen by physical therapy; history is as much as he can. Patient was seen by PT today; recommend [id number] activities. Patient will need crutches, which she has used in the past with his hip replacements. Patient had no loss of balance with the use of walker or crutches. No new complaints today. Pain well controlled. Patient does not plan on going home by himself; plans on staying with family members. - Time Spent with Patient Total time spent providing and/or coordinating discharge services: Greater than 30 minutes (41 minutes) - Discharge Medications Prescriptions: OxyCODONE/APAP 10/325 [Percocet 10/325 MG] 1 each PO Q8HR PRN 3 Days #9 tablet PRN Reason: Pain Chlordiazepoxide [Librium] 50 mg PO TID 10 Days #30 capsule Home Medications: Chlordiazepoxide [Librium] 50 mg PO TID 10 Days #30 capsule 05/25/17 [Rx] OxyCODONE/APAP 10/325 [Percocet 10/325 MG] 1 each PO Q8HR PRN 3 Days #9 tablet 05/25/17 [Rx] Allergies/Adverse Reactions: 3 Allergy/AdvReac Type Severity Reaction Status Date / Time Penicillins Allergy See Verified 05/24/17 12:20 Comments Date of admission: 05/23/17 23:42 Primary care physician: PCP NONE Consults: 05/24/17 09:42 Consult to Physical Therapy [CONS] Routine Comment: Evaluate, develop and implement POC Reason for Consult: CRUTCH TRAINING NONWEIGHT BEARING FOR 6 WEEKS Does patient have active BEDREST order?: No Is patient medically & hemodynamically stable?: Yes 05/24/17 09:43 Consult to Physician [CONS] Routine Consulting Provider: Mirza Starks Reason for Consult: TIB/FIB FX Call Completed: No 05/24/17 14:41 Consult to Casting Machine Set Up Operator [CONS] Routine Reason for SW Consult: Alcoholism, wants to quit Discharging clinician: Kemal Maldonado Anticipated date of discharge: 05/25/17 - Constitutional Vitals: Temp Pulse Resp BP Pulse Ox 98.2 F 92 18 135/79 98 05/25/17 14:15 05/25/17 14:15 05/25/17 14:15 05/25/17 14:15 05/25/17 14:15 General appearance: Present: mild distress, A&O X 3, answers questions appropriately - Head Head exam: Present: atraumatic, normocephalic - Eye Eye exam: Present: PERRL, conjuntiva pink, sclera anicteric Pupils: Present: PERRL - Neck Neck exam general surgery: Present: supple, trachea midline. Absent: lymphadenopathy - Respiratory Respiratory exam: Present: CTAB. Absent: accessory muscle use, rales, rhonchi, wheezes - Cardiovascular Cardiovascular exam: Present: RRR, +S1, +S2. Absent: diastolic murmur, gallop, rubs, systolic murmur - Extremities Exam Additional comments: right leg wrapped - Neurological Exam Neurological exam: Present: CN II-XII intact, oriented X3, no focal deficits. Absent: pronater drift, facial droop, speech deficit - Skin Skin exam: Present: dry, intact - Patient Status Disposition: Home, Self-Care Condition: Fair Overall status at discharge: patient is progressing back to baseline - Discharge Instructions Follow Up With: NONE,PCP [Primary Care Provider] - Additional Instructions: Non weight bearing to operative leg. Keep dressing clean, dry, and intact. Return to ER for any sudden severe pain, chest pain, shortness of breath, loss of sensation or movement to operative leg, or temperature over 101. - Diet and Activity Activity: as per physical therapy Diet: advance to your usual diet - VTE Documentation of Mechanical Device: Intermittent pneumatic compression device <Eyal Alfonso - Last Filed: 05/25/17 17:52> Orders not resulted at time of discharge: Pending orders 05/23/17 23:42 ECG 12 lead ECG [ECG] Stat Date of Encounter: 05/25/17 Hospital course: Mr. Manzano is a 51 year old male - Time Spent with Patient Total time spent providing and/or coordinating discharge services: Date of admission: 05/23/17 23:42 Primary care physician: PCP NONE Consults: 05/24/17 09:42 Consult to Physical Therapy [CONS] Routine Comment: Evaluate, develop and implement POC Reason for Consult: CRUTCH TRAINING NONWEIGHT BEARING FOR 6 WEEKS Does patient have active BEDREST order?: No Is patient medically & hemodynamically stable?: Yes 05/24/17 09:43 Consult to Physician [CONS] Routine Consulting Provider: Mirza Starks Reason for Consult: TIB/FIB FX Call Completed: No 05/24/17 14:41 Consult to Casting Machine Set Up Operator [CONS] Routine Reason for SW Consult: Alcoholism, wants to quit - Constitutional Vitals: Temp Pulse Resp BP Pulse Ox 98.2 F 92 18 135/79 98 05/25/17 14:15 05/25/17 14:15 05/25/17 14:15 05/25/17 14:15 05/25/17 14:15 - Attending Attestation I examined this patient and my medical decision-making was reviewed with the Resident Physician. I agree with the documented findings, disposition and treatment plan as described except to the extent set forth below.
--- NOTE | 2017-05-25 15:46 | Orthopedics Progress Note ---
Date of Encounter: 05/25/17 Time of Encounter: 01:50 - Assessment and Plan (1) Fracture of tibial shaft, right, closed Status: Acute POD#1 s/p Right leg intramedullary nailing of tibial shaft fracture, Right ankle ORIF of distal fibula 3 Leave postoperative dressings/splint in place until follow up. Continue on crutches, NWB to RLE. Continue to ice and elevate as needed. Pain control per hospitalist. Will follow up with Kimberly Rowe PA-C in AB office at [facility]. Qualifiers: Encounter type: initial encounter Fracture morphology: spiral Fracture alignment: displaced Qualified Code(s): S82.241A - Displaced spiral fracture of shaft of right tibia, initial encounter for closed fracture (2) Closed fracture of right distal fibula Status: Acute same as above Qualifiers: Encounter type: initial encounter Fracture morphology: unspecified fracture morphology Qualified Code(s): S82.831A - Other fracture of upper and lower end of right fibula, initial encounter for closed fracture Subjective Principal diagnosis: POD#1 s/p Right leg intramedullary nailing of tibial shaft fracture 3 Interval history: Patient doing well with no concerns today. He just finished with therapy and felt it went well. Comfortable with the crutches. Denies any new concerns today. Objective Vital signs: Vital Signs Temp Pulse Resp BP Pulse Ox 05/25/17 14:15 98.2 F 92 18 135/79 98 05/25/17 10:51 97.7 F 76 18 126/76 95 05/25/17 06:27 97.9 F 64 18 111/69 99 05/25/17 04:19 97.9 F 67 14 103/58 94 05/24/17 23:27 98.3 F 72 14 134/81 93 05/24/17 20:33 97.6 F 75 14 163/89 98 05/24/17 16:05 97.8 F 81 15 155/90 96 Intake and Output 05/24/17 05/25/17 05/25/17 23:59 07:59 15:59 Intake Total 440 / 440 Output Total 1300 / 1300 Balance -1300 / -1300 440 / 440 Intake: Oral 440 / 440 Output: Urine 1300 / 1300 Other: Meal Lunch Percent of Meal Consumed 100% # Voids 1 Incision: clean and dry (dressings c/d/i, splint intact to RLE, good dorsiflexion of toes, grossly NV intact. ) - Labs CBC & BMP: 05/25/17 04:30 05/25/17 04:30 Labs: Abnormal lab results WBC 11.9 K/mcL (4.3-11.1) H 05/25/17 04:30 Neutrophils # 9.3 K/mcL (1.6-8.9) H 05/25/17 04:30 Glucose 126 mg/dL (70-105) H 05/25/17 04:30 POC Glucose 97 (58-89) H 05/24/17 05:20 Serum Total Protein 5.6 g/dL (6.4-8.9) L 05/25/17 04:30 Globulin 1.9 g/dL (2.4-3.5) L 05/25/17 04:30 Ethyl Alcohol 184 mg/dL (0-10) H 05/24/17 05:16 - VTE Documentation of Mechanical Device: Intermittent pneumatic compression device Consult Discharge Plan - Plan Additional Instructions: Non weight bearing to operative leg. Keep dressing clean, dry, and intact. Return to ER for any sudden severe pain, chest pain, shortness of breath, loss of sensation or movement to operative leg, or temperature over 101. Referrals: NONE,PCP [Primary Care Provider] - Prescriptions: OxyCODONE/APAP 10/325 [Percocet 10/325 MG] 1 each PO Q8HR PRN 3 Days #9 tablet PRN Reason: Pain Chlordiazepoxide [Librium] 50 mg PO TID 10 Days #30 capsule
== END 2017-05-25 16:44 | disposition home or self-care (01) | DRG 493 ==
LOC: 3NENU
PROVIDERS: ADMIT Hospitalist; ATTEND Hospitalist